=== PATIENT | female | born 1985 | race Caucasian/White ===

== ENCOUNTER 2023-11-09 23:33 | Emergency (ER) | payer OTHER ==
[~2023-11-09] VITALS: Ht 167.6 cm; Wt 77.1 kg
[2023-11-10 00:57] LABS: PREGNANCY TEST URINE QUAL NEGATIVE (NEGATIVE)
[2023-11-10 02:37] VITALS: BP 110/73; TEMP 98.1; O2SAT 98
== END 2023-11-10 02:38 | disposition home or self-care (01) ==
LOC: ER 23:39
DX: S00.93XA Contusion of unspecified part of head, initial encounter (principal); M79.652 Pain in left thigh; M79.651 Pain in right thigh; V89.2XXA Person injured in unspecified motor-vehicle accident, traffic, initial encounter; Y93.89 Activity, other specified; Y92.89 Other specified places as the place of occurrence of the external cause; Y99.8 Other external cause status
CPT/HCPCS: 70450-TC; 71250-TC; 72125-TC; 73552; 84703-TC

== ENCOUNTER 2025-08-06 21:03 | Emergency (ER) | payer OTHER ==
[~2025-08-06] VITALS: Ht 165.1 cm; Wt 89.8 kg
[2025-08-06 22:17] VITALS: BP 112/83; TEMP 98; O2SAT 97
[2025-08-06] MEDS ORDERED: AMOX-430 PO (22:23)
[2025-08-06] MEDS ORDERED: IBUP-1490 PO (22:23)
[2025-08-06] MEDS ORDERED: IBUPROFEN 600 MG TABLET ONE (22:27)
[2025-08-06] MEDS ORDERED: AMOX/CLAVULANATE 875 MG TABLET ONE (22:27)
[2025-08-06] MEDS ORDERED: TDAP [DIPH/PERTUSSIS/TET] 0.5 ML VIAL IM ONE ×2 (22:28→22:30)
[2025-08-06] MEDS: AMOX/CLAVULANATE 875 MG TABLET PO ONE (22:50)
[2025-08-06] MEDS: IBUPROFEN 600 MG TABLET PO ONE (22:50)
== END 2025-08-06 23:11 | disposition home or self-care (01) ==
LOC: ER 21:05
DX: S51.831A Puncture wound without foreign body of right forearm, initial encounter (principal); W54.0XXA Bitten by dog, initial encounter; Y93.89 Activity, other specified; Y92.89 Other specified places as the place of occurrence of the external cause; Y99.8 Other external cause status
CPT/HCPCS: 90715